=== PATIENT | female | born 1950 | race Caucasian/White ===

== ENCOUNTER 2016-07-29 07:22 | Day surgery (SDC) | payer MEDICARE, OTHER ==
[~2016-07-29 07:22] MED LIST: Midazolam 1 MG/ML 2 ML SDV ONE; Propofol 200 MG/20 ML SDV ONE; fentaNYL 100 MCG/2 ML SDV ONE
[2016-07-29] MEDS ORDERED: Sodium Chloride 0.9% 1,000 ML IV SCH (07:45)
[2016-07-29] MEDS ORDERED: Propofol 200 MG/20 ML SDV ONE (09:10)
[2016-07-29 10:45] VITALS: BP 123/65
--- NOTE | 2016-07-29 10:46 | OR ---
CORRECTED COPY FINDINGS: 1. Cecal polyp, 5 mm, completely removed using cold biopsy forceps. 2. Ascending colon polyp, approximately 5 mm, completely removed using cold biopsy forceps. 3. Transverse colon polyp, approximately 5 mm, completely removed using cold biopsy forceps. 4. Transverse colon polyp, #2, approximately 5 mm, completely removed using cold biopsy forceps. DATE OF PROCEDURE: 07/29/2016 PROCEDURE PERFORMED: Colonoscopy. FINDINGS: 1. Cecal polyp, approximately 5 mm, completely removed using cold biopsy forceps. 2. Transverse colon polyps;. a. #1, approximately 5 mm, completely removed using cold biopsy forceps. b. #2, 5 mm, completely removed using cold biopsy forceps. COMPLICATIONS: None. NEUROSURGERY RESEARCH DIRECTOR: None. PREOPERATIVE DIAGNOSIS: Family history of colorectal cancer. POSTOPERATIVE DIAGNOSIS: Family history of colorectal cancer. RISKS: Risks, benefits, alternatives, and limitations including infection, bleeding, and perforation were explained to the patient , and they wished to proceed. PROCEDURE IN DETAIL: The patient was placed in left lateral decubitus position. Digital rectal exam was performed without abnormality. The scope was introduced and advanced atraumatically to the ileocecal valve. The scope was brought back to the ascending, transverse, descending colon, and retroflexed. No diverticulosis. No masses. The aforementioned polyps were all identified and completely removed without abnormality. The patient tolerated the procedure well. Patrick Lisa MD /[id number]
== END 2016-07-29 10:55 | disposition home or self-care (01) ==
LOC: JP.SDS 07:22
PROVIDERS: ATTEND Surgery
DX: Z12.11 Encounter for screening for malignant neoplasm of colon (principal); D12.0 Benign neoplasm of cecum; D12.2 Benign neoplasm of ascending colon; D12.3 Benign neoplasm of transverse colon; I12.9 Hypertensive chronic kidney disease with stage 1 through stage 4 chronic kidney disease, or unspecified chronic kidney disease; E11.22 Type 2 diabetes mellitus with diabetic chronic kidney disease; N18.9 Chronic kidney disease, unspecified; Z80.0 Family history of malignant neoplasm of digestive organs
CPT/HCPCS: 45380; 82962; J2250; J2704; J3010; J7040; 88305

== ENCOUNTER 2016-09-22 19:56 | Emergency (ER) | payer MEDICARE, OTHER ==
[2016-09-22 20:24] VITALS: BP 176/83
[2016-09-22] MEDS ORDERED: Bacitracin Oint 1 GM U/D Packet TOP ONE (20:25)
--- NOTE | 2016-09-22 20:30 | EDM.PDOC ---
ED HPI GENERAL MEDICAL PROBLEM - General Chief Complaint: Laceration Stated Complaint: CUT THUMB Time Seen by Provider: 09/22/16 20:29 Source of Information: Reports: Patient History Limitations: Reports: No Limitations - History of Present Illness INITIAL COMMENTS - FREE TEXT/NARRATIVE: 65-year-old female cut her left hand with a knife while trying to cut a steak. She has a curved flap laceration on the outside of the base of the thumb. No distal paresthesias, weakness or limited range of motion. Onset: Today Duration: Hour(s): (Within the last hour) Location: Reports: Upper Extremity, Left Associated Symptoms: Reports: No Other Symptoms - Related Data Allergies Allergy/AdvReac Type Severity Reaction Status Date / Time cefprozil Allergy Hives Verified 09/22/16 20:22 cefuroxime [From Ceftin] Allergy Hives Verified 09/22/16 20:22 celecoxib Allergy Hives Verified 09/22/16 20:22 cephalexin Allergy Hives Verified 09/22/16 20:22 ciprofloxacin Allergy Swelling Verified 09/22/16 20:22 clindamycin Allergy Hives Verified 09/22/16 20:22 erythromycin base Allergy Hives Verified 09/22/16 20:22 etanercept [From Enbrel] Allergy Hives Verified 09/22/16 20:22 Iodinated Contrast- Oral and Allergy Hives Verified 09/22/16 20:22 IV Dye [Iodinated Contrast Media - Oral and] metformin Allergy Hives Verified 09/22/16 20:22 naproxen Allergy Hives Verified 09/22/16 20:22 Penicillins Allergy Hives Verified 09/22/16 20:22 pineapple Allergy Other Verified 09/22/16 20:22 propoxyphene Allergy Hives Verified 09/22/16 20:22 rofecoxib [From Vioxx] Allergy Hives Verified 09/22/16 20:22 Sulfa (Sulfonamide Allergy Hives Verified 09/22/16 20:22 Antibiotics) Home Meds: Home Meds Acetaminophen [Tylenol Extra Strength] 1,000 mg PO Q6H PRN 07/14/16 [History] Acyclovir 400 mg PO TID 07/14/16 [History] Aspirin 325 mg PO DAILY 07/14/16 [History] Atenolol [Tenormin] 25 mg PO BEDTIME 07/14/16 [History] Atenolol [Tenormin] 50 mg PO QAM 07/14/16 [History] Cholecalciferol (Vitamin D3) [Vitamin D3] 3,000 units PO DAILY 07/14/16 [History ] Folic Acid 1 mg PO DAILY 07/14/16 [History] Furosemide [Lasix] 40 mg PO 1400 07/14/16 [History] Furosemide [Lasix] 80 mg PO QAM 07/14/16 [History] Hydrocodone/Acetaminophen [Hydrocodon-Acetaminophen 5-325] 1 - 2 tab PO Q6H PRN 07/14/16 [History] Insulin Glarg,Human.Rec.Analog [LantUS Solostar] 20 unit SQ QAM 07/14/16 [ History] Insulin Glarg,Human.Rec.Analog [LantUS Solostar] 20 unit SUBCUT QPM 07/14/16 [ History] Nitroglycerin [Nitrostat] 0.4 mg SL ASDIRECTED PRN 07/14/16 [History] Omeprazole 20 mg PO BEDTIME 07/14/16 [History] Primidone 100 mg PO BEDTIME 07/14/16 [History] Simvastatin [Zocor] 40 mg PO BEDTIME 07/14/16 [History] Spironolactone [Aldactone] 100 mg PO DAILY 07/14/16 [History] azaTHIOprine [Imuran] 50 mg PO TID 07/14/16 [History] diphenhydrAMINE [Benadryl] 25 mg PO BEDTIME PRN 07/14/16 [History] predniSONE [Prednisone] 5 mg PO DAILY 07/14/16 [History] Past Medical History HEENT History: Reports: Cataract, Retinal Detachment, Other (See Below) Other HEENT History: 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 Cardiovascular History: Reports: Afib, Angina, Heart Murmur, High Cholesterol, Hypertension, Other (See Below) Other Cardiovascular History: small vessel vasculitis Respiratory History: Reports: Bronchitis, Recurrent, Pneumonia, Recurrent, Other (See Below) Other Respiratory History: questionable PE in past, right lung histoplasmosis Gastrointestinal History: Reports: Hemorrhoids Genitourinary History: Reports: Other (See Below) Other Genitourinary History: Stage III renal failure BOXING INSTRUCTOR History: Reports: , Other (See Below) Other OB/BYN History: ovarian cyst Musculoskeletal History: Reports: RA, Other (See Below) Other Musculoskeletal History: osteopenia. bilateral knee pain Endocrine/Metabolic History: Reports: Diabetes, Type II, Multinodular Thyroid Hematologic History: Reports: Anemia Immunologic History: Reports: Other (See Below) Other Immunologic History: Lupus Dermatologic History: Reports: Other (See Below) Other Dermatologic History: leg phlebitis, cellulitis - Past Surgical History HEENT Surgical History: Reports: Cataract Surgery, Detached Retina GI Surgical History: Reports: Colonoscopy Female Surgical History: Reports: Breast Biopsy, Hysterectomy, Salpingo- Oophorectomy, Tubal Ligation Neurological Surgical History: Reports: Spinal Fusion, Other (See Below) Other Neurological Surgeries/Procedures: L5-S1 fusion Musculoskeletal Surgical History: Reports: Arthroscopic Procedure, Other (See Below) Other Musculoskeletal Surgeries/Procedures:: "Hometown" feet - reconstruction of bilat feet Social & Family History - Tobacco Use Smoking Status *Q: Never Smoker Second Hand Smoke Exposure: Yes - Caffeine Use Caffeine Use: Reports: Soda - Recreational Drug Use Recreational Drug Use: No ED ROS GENERAL - Review of Systems Review Of Systems: See Below Constitutional: Denies: Fever Respiratory: Denies: Shortness of Breath GI/Abdominal: Denies: Nausea, Vomiting Skin: Reports: Other (Patient does have lupus, "weak skin".) ED EXAM, SKIN/RASH Exam: See Below Exam Limited By: No Limitations General Appearance: Alert, No Apparent Distress Respiratory/Chest: No Respiratory Distress Extremities: Other (Exam is otherwise limited to the left hand. The patient is a 2.5 cm curved flap laceration on the back of the left thumb over the metacarpal area. Distal CMS is normal.) Course - Vital Signs Last Recorded V/S: Last Vital Signs Temp 98.0 F 09/22/16 20:28 Pulse 66 09/22/16 20:28 Resp 16 09/22/16 20:28 BP 176/83 H 09/22/16 20:28 Pulse Ox 97 09/22/16 20:28 - Orders/Labs/Meds Meds: Medications Discontinued Medications Generic Name Dose Route Start Last Admin Trade Name Freq PRN Reason Stop Dose Admin Bacitracin 1 dose 09/22/16 20:25 09/22/16 21:06 Bacitracin Oint 1 Gm TOP 09/22/16 20:26 1 dose ONETIME ONE Administration Lidocaine HCl 5 ml 09/22/16 20:25 09/22/16 21:06 Xylocaine-Mpf 1% INJECT 09/22/16 20:26 5 ml ONETIME ONE Administration - Re-Assessments/Exams Free Text/Narrative Re-Assessment/Exam: 09/22/16 21:03 The wound was anesthetized with 1% lidocaine, cleansed thoroughly with saline and Hibiclens and 5 5-0 Ethilon sutures were used to close the wound. Topical bacitracin was applied and the sutures can be removed in 8 days. Departure - Departure Time of Disposition: 21:35 Disposition: Home, Self-Care 01 Condition: Good Clinical Impression: Laceration of hand Qualifiers: Encounter type: initial encounter Foreign body presence: without foreign body Laterality: left Qualified Code(s): S61.412A - Laceration without foreign body of left hand, initial encounter - Discharge Information Instructions: Laceration Care, Adult, [id number] Referrals: Mata Escobar MD [Primary Care Provider] - Forms: ED Department Discharge Care Plan Goals: Keep wound covered and clean while healing. Sutures can be removed in 8 days, recheck sooner if concerns of infection or not healing satisfactorily.
== END 2016-09-22 21:33 | disposition home or self-care (01) ==
LOC: JP.ED 19:56
DX: S61.412A Laceration without foreign body of left hand, initial encounter (principal); I48.91 Unspecified atrial fibrillation; E78.00 Pure hypercholesterolemia, unspecified; M06.9 Rheumatoid arthritis, unspecified; I12.9 Hypertensive chronic kidney disease with stage 1 through stage 4 chronic kidney disease, or unspecified chronic kidney disease; N18.3 Chronic kidney disease, stage 3 (moderate); E11.22 Type 2 diabetes mellitus with diabetic chronic kidney disease; Z86.2 Personal history of diseases of the blood and blood-forming organs and certain disorders involving the immune mechanism; Z88.8 Allergy status to other drugs, medicaments and biological substances; Z88.1 Allergy status to other antibiotic agents; Z91.041 Radiographic dye allergy status; Z88.0 Allergy status to penicillin; Z87.01 Personal history of pneumonia (recurrent); Z91.018 Allergy to other foods; Z88.2 Allergy status to sulfonamides; Z79.4 Long term (current) use of insulin; Z79.899 Other long term (current) drug therapy; Z98.49 Cataract extraction status, unspecified eye; W26.0XXA Contact with knife, initial encounter; M25.561 Pain in right knee; M25.562 Pain in left knee; M17.0 Bilateral primary osteoarthritis of knee
CPT/HCPCS: 12001; 735642650; 73564-26-LT; 73564-26-RT; 73564-50; 73564-LT; 73564-RT; 87070; 99213; 99282-25; 99283-25

== ENCOUNTER 2017-09-15 06:18 | Day surgery (SDC) | payer MEDICARE, OTHER ==
[2017-09-15] MEDS ORDERED: Sodium Chloride 0.9% 1,000 ML IV SCH (07:00)
[2017-09-15] MEDS ORDERED: fentaNYL 100 MCG/2 ML SDV ONE (07:06)
[2017-09-15] MEDS ORDERED: Propofol 200 MG/20 ML SDV ONE (07:06)
[2017-09-15] MEDS ORDERED: Midazolam 1 MG/ML 2 ML SDV ONE (07:06)
--- NOTE | 2017-09-15 09:16 | OR ---
DATE OF PROCEDURE: 09/15/2017 PROCEDURE: Colonoscopy. FINDINGS: Descending colon polyp, approximately 5 mm, completely removed using cold biopsy forceps. COMPLICATIONS: None. LABOR DELIVERY RN: None. ANESTHETIC: MAC. PREOPERATIVE DIAGNOSIS: History of colon polyps/family history of colorectal cancer. POSTOPERATIVE DIAGNOSIS: History of colon polyps/family history of colorectal cancer. RISKS: Risks, benefits, alternatives, and limitations including, but not limited to infection, bleeding, and perforation were explained to the patient, who wished to proceed. PROCEDURE DETAILS: The patient was placed in left lateral decubitus position. Digital rectal exam was performed, which showed mild external hemorrhoids. The scope was introduced and advanced atraumatically to the cecum. A photo was taken of this. The scope was brought back to the remaining colon. The aforementioned polyp was identified and completely removed. No other abnormalities. No old or new blood. The patient tolerated the procedure well. No diverticulosis or other polyps. Patrick Lisa MD /[id number]
[2017-09-15 09:38] VITALS: BP 142/66
== END 2017-09-15 09:30 | disposition home or self-care (01) ==
LOC: JP.SDS 06:18
PROVIDERS: ATTEND Surgery
DX: Z12.11 Encounter for screening for malignant neoplasm of colon (principal); D12.4 Benign neoplasm of descending colon; K64.4 Residual hemorrhoidal skin tags; I12.9 Hypertensive chronic kidney disease with stage 1 through stage 4 chronic kidney disease, or unspecified chronic kidney disease; E11.22 Type 2 diabetes mellitus with diabetic chronic kidney disease; N18.9 Chronic kidney disease, unspecified; Z86.010 Personal history of colon polyps; Z80.0 Family history of malignant neoplasm of digestive organs
CPT/HCPCS: 45380; J2250; J2704; J3010; J7030; 88305

== ENCOUNTER 2020-07-19 18:03 | Emergency (ER) | payer MEDICARE, OTHER ==
--- NOTE | 2020-07-19 19:10 | EDM.PDOC ---
ED HPI GENERAL MEDICAL PROBLEM - General Chief Complaint: General Stated Complaint: BRUISING ON RT SIDE AFTER PROCEDURE Time Seen by Provider: 07/19/20 18:42 Source of Information: Reports: Patient History Limitations: Reports: No Limitations - History of Present Illness INITIAL COMMENTS - FREE TEXT/NARRATIVE: Marcy is a 69-year-old female presenting to the ED for evaluation of a large hematoma in her right forearm, arm, and extending into the axilla and right chest/breast area. The patient underwent a cardiac angiogram at [facility] days ago where they did a left radial artery approach. They had to downsize the size of the catheter because of vasospasm resulting in a large extravasation of blood around the artery extending up the arm. She had a significant drop in her hemoglobin from 11.3-9.0 resulting in them keeping her overnight for observation. She states that they gave her some type of sedative for the angiogram and when she woke up her throat felt quite scratchy like she had been intubated. Since then she has been having difficulty with concentration and feels ill. No recollection of the angiogram due to the sedation. She is worried because the arm and right breast are becoming quite tender and painful. She reports that during her stay in the hospital they were having difficulty keeping her sugars under control because they were underdosing her with insulin resulting in her leukosis levels being over 200. At one point they were over 350 and the only gave her 5 units of regular insulin for this. He also has a history of stage III kidney failure and was supposed to have a creatinine drawn in the clinic today but did not make it because she was not feeling well. She also reports that she was hypokalemic at the time of dischar ge with a potassium of 3.2 and they gave her a couple tablets of K-Kelsey but did not check her again after that. She is on Plavix following the angioplasty. She has history significant for a loud systolic ejection murmur heard in the left upper sternal border, bilateral carotid stenosis with the right carotid being 100% occluded and left carotid being 69% occluded. She denies any new numbness, weakness, or incoordination. Right Arm Pain Score (Numeric/FACES): 6 - Related Data Allergies Allergy/AdvReac Type Severity Reaction Status Date / Time cefprozil Allergy Hives Verified 07/19/20 18:44 cefuroxime [From Ceftin] Allergy Hives Verified 07/19/20 18:44 celecoxib Allergy Hives Verified 07/19/20 18:44 cephalexin Allergy Hives Verified 07/19/20 18:44 ciprofloxacin Allergy Swelling Verified 07/19/20 18:44 clindamycin Allergy Hives Verified 07/19/20 18:44 erythromycin base Allergy Hives Verified 07/19/20 18:44 etanercept [From Enbrel] Allergy Hives Verified 07/19/20 18:44 Iodinated Contrast Media Allergy Hives Verified 07/19/20 18:44 [Iodinated Contrast Media - Oral and] metformin Allergy Hives Verified 07/19/20 18:44 naproxen Allergy Hives Verified 07/19/20 18:44 Penicillins Allergy Hives Verified 07/19/20 18:44 pineapple Allergy Other Verified 07/19/20 18:44 propoxyphene Allergy Hives Verified 07/19/20 18:44 rofecoxib [From Vioxx] Allergy Hives Verified 07/19/20 18:44 Sulfa (Sulfonamide Allergy Hives Verified 07/19/20 18:44 Antibiotics) Home Meds: Home Meds Acetaminophen [Tylenol Extra Strength] 1,000 mg PO Q6H PRN 07/14/16 [History] Aspirin 81 mg PO DAILY 07/14/16 [History] Cholecalciferol (Vitamin D3) [Vitamin D3] 1,000 units PO DAILY 07/14/16 [History] Folic Acid 1 mg PO DAILY 07/14/16 [History] Furosemide [Lasix] 80 mg PO DAILY 07/14/16 [History] Hydrocodone/Acetaminophen [Hydrocodon-Acetaminophen 5-325] 1 - 2 tab PO Q6H PRN 07/14/16 [History] Insulin Glarg,Human.Rec.Analog [LantUS Solostar] 25 unit SQ QAM 07/14/16 [History] Omeprazole 20 mg PO BEDTIME 07/14/16 [History] Primidone 100 mg PO BEDTIME 07/14/16 [History] Spironolactone [Aldactone] 100 mg PO DAILY 07/14/16 [History] azaTHIOprine [Imuran] 50 mg PO DAILY 07/14/16 [History] predniSONE [Prednisone] 5 mg PO DAILY 07/14/16 [History] Propranolol [Inderal] 20 mg PO BID 09/14/17 [History] Acyclovir [Zovirax] 200 mg PO TID 05/10/19 [History] Doxycycline [Vibramycin] 1 cap PO BID 05/10/19 [History] Ibandronate [Boniva] 1 tab PO ASDIRECTED 05/10/19 [History] Insulin Aspart [NovoLOG] 0 units SQ ASDIRECTED 05/10/19 [History] Clopidogrel [Plavix] 75 mg PO DAILY 07/19/20 [History] Furosemide 40 mg PO BEDTIME 07/19/20 [History] Rosuvastatin [Crestor] 40 mg PO BEDTIME 07/19/20 [History] amLODIPine [Norvasc] 2.5 mg PO DAILY 07/19/20 [History] Past Medical History HEENT History: Reports: Cataract, Retinal Detachment, Other (See Below) Other HEENT History: 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 angiogram with stent may and june 2020. 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 bilateral knee pain Neurological History: Reports: None Endocrine/Metabolic History: Reports: Diabetes, Type II, Multinodular Thyroid Hematologic History: Reports: Anemia, Blood Transfusion(s) Immunologic History: Reports: Other (See Below) Other Immunologic History: Lupus Dermatologic History: Reports: Other (See Below) Other Dermatologic History: leg phlebitis, cellulitis - Infectious Disease History Infectious Disease History: Reports: Chicken Pox, Measles, Pertussis (Whooping Cough), Rheumatic Fever, Scarlet Fever, Shingles - Past Surgical History HEENT Surgical History: Reports: Cataract Surgery, Detached Retina Cardiovascular Surgical History: Reports: Coronary Artery Stent GI Surgical History: Reports: Colonoscopy, EGD Female Surgical History: Reports: Breast Biopsy, Hysterectomy, Salpingo- Oophorectomy, Tubal Ligation Endocrine Surgical History: Reports: Thyroid Biopsy Neurological Surgical History: Reports: Spinal Fusion, Other (See Below) Other Neurological Surgeries/Procedures: L5-S1 fusion Musculoskeletal Surgical History: Reports: Arthroscopic Procedure, Other (See Below) Other Musculoskeletal Surgeries/Procedures:: Scharco" feet - reconstruction of bilat feet Social & Family History - Tobacco Use Tobacco Use Status *Q: Never Tobacco User - Caffeine Use Caffeine Use: Reports: None - Recreational Drug Use Recreational Drug Use: No ED ROS GENERAL - Review of Systems Review Of Systems: See Below Constitutional: Reports: No Symptoms HEENT: Reports: Throat Pain (Patient states this feels like they had intubated her with her throat feeling scratchy) Respiratory: Reports: No Symptoms Cardiovascular: Reports: No Symptoms Endocrine: Reports: No Symptoms GI/Abdominal: Reports: No Symptoms : Reports: No Symptoms Musculoskeletal: Reports: Arm Pain (Right arm pain secondary to hematoma formation in the right forearm, arm, axilla, and chest wall) Skin: Reports: Bruising (Extensive bruising through the right forearm, arm, and axilla) Neurological: Reports: Other (Patient is complaining of feeling "foggy" since undergoing her procedure) Psychiatric: Reports: No Symptoms Hematologic/Lymphatic: Reports: No Symptoms Immunologic: Reports: No Symptoms ED EXAM, GENERAL - Physical Exam Exam: See Below Exam Limited By: No Limitations General Appearance: Alert, No Apparent Distress, Anxious Eye Exam: Bilateral Eye: EOMI, PERRL Throat/Mouth: Normal Inspection Head: Atraumatic, Normocephalic Neck: Normal Inspection, Supple, Carotid Bruit (Left-sided) Respiratory/Chest: No Respiratory Distress, Lungs Clear, Normal Breath Sounds Cardiovascular: Normal Peripheral Pulses, Regular Rate, Rhythm, No Edema, No JVD, Systolic Murmur (Grade 4/6 systolic ejection murmur heard in the left upper sternal region.) Peripheral Pulses: 2+: Radial (L), Radial (R), Posterior Tibial (L), Posterior Tibial (R) GI/Abdominal: Normal Bowel Sounds, Soft, Non-Tender Back Exam: Normal Inspection Extremities: Normal Range of Motion, No Pedal Edema, Normal Capillary Refill, Other (Very large hematoma extending up to the right dorsal forearm and arm into the axilla and lateral chest wall the area is very tender to palpation.) Neurological: Alert, Oriented, Normal Cognition, No Motor/Sensory Deficits Psychiatric: Normal Affect Skin Exam: Warm, Dry, Ecchymosis (Large area of ecchymosis tracking down the dorsal forearm, arm, into the axilla and chest wall), Increased Warmth (Following the path of the ecchymosis) Lymphatic: No Adenopathy Course - Vital Signs Last Recorded V/S: Last Vital Signs Temp 36.4 C 07/19/20 18:43 Pulse 72 07/19/20 20:56 Resp 16 07/19/20 18:43 BP 127/63 07/19/20 20:56 Pulse Ox 99 07/19/20 20:56 - Orders/Labs/Meds Labs: Laboratory Tests 07/19/20 07/19/20 07/19/20 Range/Units 19:10 19:10 19:10 WBC 7.8 (4.5-11.0) K/uL RBC 2.95 L (3.30-5.50) M/uL Hgb 9.4 L D (12.0-15.0) g/dL Hct 29.3 L (36.0-48.0) % MCV 99 H (80-98) fL MCH 32 H (27-31) pg MCHC 32 (32-36) % Plt Count 198 (150-400) K/uL Neut % (Auto) 70.0 H (36-66) % Lymph % (Auto) 19.1 L (24-44) % [place] % (Auto) 9.4 H (2-6) % Eos % (Auto) 1.4 L (2-4) % Baso % (Auto) 0.1 (0-1) % PT 10.4 (9.5-12.0) sec INR 0.95 (0.80-1.20) APTT 21.3 L (27.0-36.0) sec Sodium 140 (140-148) mmol/L Potassium 3.9 (3.6-5.2) mmol/L Chloride 97 L (100-108) mmol/L Carbon Dioxide 33 H (21-32) mmol/L Anion Gap 13.9 (5.0-14.0) mmol/L BUN 30 H (7-18) mg/dL Creatinine 1.4 H (0.6-1.0) mg/dL Est Cr Clr Drug Dosing 39.33 mL/min Estimated GFR (MDRD) 38 L (>60) Glucose 136 H (74-106) mg/dL Calcium 9.1 (8.5-10.1) mg/dL Total Bilirubin 0.4 (0.2-1.0) mg/dL AST 19 (15-37) U/L ALT 23 (12-78) U/L Alkaline Phosphatase 74 (46-116) U/L Total Protein 6.8 (6.4-8.2) g/dL Albumin 3.7 (3.4-5.0) g/dL Globulin 3.1 (2.3-3.5) g/dL Albumin/Globulin Ratio 1.2 (1.2-2.2) Urine Color (YELLOW) Urine Appearance (CLEAR) Urine pH (5.0-8.0) Ur Specific [place] (1.008-1.030) Urine Protein (NEGATIVE) mg/dL Urine Glucose (UA) (NEGATIVE) mg/dL Urine Ketones (NEGATIVE) mg/dL Urine Occult Blood (NEGATIVE) Urine Nitrite (NEGATIVE) Urine Bilirubin (NEGATIVE) Urine Urobilinogen (0.2-1.0) EU/dL Ur Leukocyte Esterase (NEGATIVE) Urine RBC (0-5) Urine WBC (0-5) Ur Epithelial Cells Amorphous Sediment Urine Bacteria Urine Mucus 07/19/20 Range/Units 19:46 WBC (4.5-11.0) K/uL RBC (3.30-5.50) M/uL Hgb (12.0-15.0) g/dL Hct (36.0-48.0) % MCV (80-98) fL MCH (27-31) pg MCHC (32-36) % Plt Count (150-400) K/uL Neut % (Auto) (36-66) % Lymph % (Auto) (24-44) % [place] % (Auto) (2-6) % Eos % (Auto) (2-4) % Baso % (Auto) (0-1) % PT (9.5-12.0) sec INR (0.80-1.20) APTT (27.0-36.0) sec Sodium (140-148) mmol/L Potassium (3.6-5.2) mmol/L Chloride (100-108) mmol/L Carbon Dioxide (21-32) mmol/L Anion Gap (5.0-14.0) mmol/L BUN (7-18) mg/dL Creatinine (0.6-1.0) mg/dL Est Cr Clr Drug Dosing mL/min Estimated GFR (MDRD) (>60) Glucose (74-106) mg/dL Calcium (8.5-10.1) mg/dL Total Bilirubin (0.2-1.0) mg/dL AST (15-37) U/L ALT (12-78) U/L Alkaline Phosphatase (46-116) U/L Total Protein (6.4-8.2) g/dL Albumin (3.4-5.0) g/dL Globulin (2.3-3.5) g/dL Albumin/Globulin Ratio (1.2-2.2) Urine Color Yellow (YELLOW) Urine Appearance Clear (CLEAR) Urine pH 7.0 (5.0-8.0) Ur Specific [place] 1.015 (1.008-1.030) Urine Protein 30 H (NEGATIVE) mg/dL Urine Glucose (UA) Negative (NEGATIVE) mg/dL Urine Ketones Negative (NEGATIVE) mg/dL Urine Occult Blood Trace-intact H (NEGATIVE) Urine Nitrite Negative (NEGATIVE) Urine Bilirubin Negative (NEGATIVE) Urine Urobilinogen 1.0 (0.2-1.0) EU/dL Ur Leukocyte Esterase Trace H (NEGATIVE) Urine RBC 0-5 (0-5) Urine WBC 5-10 H (0-5) Ur Epithelial Cells Few Amorphous Sediment Not seen Urine Bacteria Moderate Urine Mucus Few - Re-Assessments/Exams Free Text/Narrative Re-Assessment/Exam: 07/19/20 21:38 I reviewed the patient's labs showing her hemoglobin is at 9.4 which is consistent with where it was when she was discharged from the hospital following the angiogram. Her kidney function is doing well with a creatinine of 1.4. Her GFR is calculated at 45 which puts her at a chronic kidney disease stage IIIa. Her potassium is normal at 3.9. At this time, the brain fog is likely due to recovering from her hypnotic that was used during her sedation for her angiogram. This may take up to a week to clear. I encouraged her to continue to push fluids to help flush the kidneys from the contrast use during the angiogram and angioplasty. At this time she is stable and suitable for discharge home in satisfactory condition. She may continue to take Tylenol for pain control and I encouraged her to use heating pads or heating blanket on the area of the hematoma to help with absorption. All questions were answered prior to discharge and indications return to the ED were discussed. Departure - Departure Time of Disposition: 21:35 Disposition: Home, Self-Care 01 Clinical Impression: Brain fog Postoperative hematoma involving circulatory system Qualifiers: Procedure type: cardiac catheterization Qualified Code(s): I97.630 - Postprocedural hematoma of a circulatory system organ or structure following a cardiac catheterization Chronic renal failure, stage 3 (moderate) Qualifiers: Chronic kidney disease stage 3 subtype: stage 3a (GFR 45-59) Qualified Code(s): N18.31 - Chronic kidney disease, stage 3a - Discharge Information Instructions: Chronic Kidney Disease, Adult, [id number] Referrals: Mata Escobar MD [Primary Care Provider] - Forms: ED Department Discharge Care Plan Goals: The hematoma in your forearm, arm, and chest wall are likely stable at this point. Will take several weeks for this to reabsorb. You may use heating pad or hot packs to the area to help reduce pain and swelling. Please take Tylenol also for the pain. You will want to avoid ibuprofen as you are already on P lavix. Continue to push fluids to prevent dehydration and keep the kidneys functioning properly after the contrast from the angiogram. Sepsis Event Note (ED) - Evaluation Sepsis Screening Result: No Definite Risk - Focused Exam Vital Signs: Vital Signs Temp Pulse Resp BP Pulse Ox 07/19/20 20:56 72 127/63 99 07/19/20 18:43 36.4 C 81 16 147/64 H 97 07/19/20 18:20 36.4 C 81 16 147/64 H 97 - Problem List & Annotations (1) Brain fog SNOMED Code(s): 585951509 Code(s): F48.8 - OTHER SPECIFIED NONPSYCHOTIC MENTAL DISORDERS Status: Acute Priority: Medium Current Visit: Yes (2) Chronic renal failure, stage 3 (moderate) SNOMED Code(s): 77567131, 915932977 Code(s): N18.30 - CHRONIC KIDNEY DISEASE, STAGE 3 UNSPECIFIED Status: Chronic Priority: Medium Current Visit: Yes Qualifiers: Chronic kidney disease stage 3 subtype: stage 3a (GFR 45-59) Qualified Code(s): N18.31 - Chronic kidney disease, stage 3a (3) Postoperative hematoma involving circulatory system SNOMED Code(s): 881314527, 094621502 Code(s): OEH2732 - Status: Acute Priority: High Current Visit: Yes Qualifiers: Procedure type: cardiac catheterization Qualified Code(s): I97.630 - Postprocedural hematoma of a circulatory system organ or structure following a cardiac catheterization - Problem List Review Problem List Initiated/Reviewed/Updated: Yes
[2020-07-19 21:38] VITALS: BP 146/68; PULSE 73
== END 2020-07-19 21:58 | disposition home or self-care (01) ==
LOC: JP.ED 18:03
DX: I97.630 Postprocedural hematoma of a circulatory system organ or structure following a cardiac catheterization (principal); E78.00 Pure hypercholesterolemia, unspecified; I48.91 Unspecified atrial fibrillation; E11.9 Type 2 diabetes mellitus without complications; I12.9 Hypertensive chronic kidney disease with stage 1 through stage 4 chronic kidney disease, or unspecified chronic kidney disease; E11.22 Type 2 diabetes mellitus with diabetic chronic kidney disease; N18.31 Chronic kidney disease, stage 3a; Z79.899 Other long term (current) drug therapy; G98.8 Other disorders of nervous system
CPT/HCPCS: 36415; 80053; 81001; 85025; 85610; 85730; 99283

== ENCOUNTER 2020-12-24 12:06 | Emergency (ER) | payer MEDICARE, OTHER ==
[2020-12-24 12:29] VITALS: BP 159/56; PULSE 70
--- NOTE | 2020-12-24 12:39 | EDM.PDOC ---
ED HPI GENERAL MEDICAL PROBLEM - General Chief Complaint: Chest Pain Stated Complaint: BURNING IN CHEST Time Seen by Provider: 12/24/20 12:35 Source of Information: Reports: Patient History Limitations: Reports: No Limitations - History of Present Illness INITIAL COMMENTS - FREE TEXT/NARRATIVE: 70-year-old female who has known coronary artery disease, had stents placed earlier this year and went in for a routine post evaluation at the clinic for cardiology follow-up and informed the provider that she was having recurring burning in her chest. It sounds like it was fairly stable initially but she starting to have symptoms at rest. An EKG apparently was done at the clinic which showed some changes that were stable from previous EKGs. The patient says she occasionally takes nitroglycerin but it gives her headache so she typically just rests until the pressure or burning goes away. I got a call from a clinic nurse that said she was coming over to be evaluated for "unstable angina". I did not get a call from the provider. She has no nausea or vomiting. The symptoms have been ongoing for several weeks but seem to be worsening. Onset: Gradual Duration: Week(s): (Several weeks) Location: Reports: Chest (Chest burning) Associated Symptoms: Reports: No Other Symptoms Chest Pain Score (Numeric/FACES): 4 - Related Data Allergies Allergy/AdvReac Type Severity Reaction Status Date / Time cefprozil Allergy Hives Verified 12/24/20 12:50 cefuroxime [From Ceftin] Allergy Hives Verified 12/24/20 12:50 celecoxib Allergy Hives Verified 12/24/20 12:50 cephalexin Allergy Hives Verified 12/24/20 12:50 ciprofloxacin Allergy Swelling Verified 12/24/20 12:50 clindamycin Allergy Hives Verified 12/24/20 12:50 erythromycin base Allergy Hives Verified 12/24/20 12:50 etanercept [From Enbrel] Allergy Hives Verified 12/24/20 12:50 Iodinated Contrast Media Allergy Hives Verified 12/24/20 12:50 [Iodinated Contrast Media - Oral and] metformin Allergy Hives Verified 12/24/20 12:50 naproxen Allergy Hives Verified 12/24/20 12:50 Penicillins Allergy Hives Verified 12/24/20 12:50 pineapple Allergy Other Verified 12/24/20 12:50 propoxyphene Allergy Hives Verified 12/24/20 12:50 rofecoxib [From Vioxx] Allergy Hives Verified 12/24/20 12:50 Sulfa (Sulfonamide Allergy Hives Verified 12/24/20 12:50 Antibiotics) Home Meds: Home Meds Acetaminophen [Tylenol Extra Strength] 1,000 mg PO Q6H PRN 07/14/16 [History] Aspirin 81 mg PO DAILY 07/14/16 [History] Cholecalciferol (Vitamin D3) [Vitamin D3] 1,000 units PO DAILY 07/14/16 [History] Folic Acid 1 mg PO DAILY 07/14/16 [History] Furosemide [Lasix] 80 mg PO DAILY 07/14/16 [History] Hydrocodone/Acetaminophen [Hydrocodon-Acetaminophen 5-325] 1 - 2 tab PO Q6H PRN 07/14/16 [History] Insulin Glarg,Human.Rec.Analog [LantUS Solostar] 25 unit SQ QAM 07/14/16 [History] Omeprazole 20 mg PO BEDTIME 07/14/16 [History] Primidone 100 mg PO BEDTIME 07/14/16 [History] Spironolactone [Aldactone] 100 mg PO DAILY 07/14/16 [History] azaTHIOprine [Imuran] 50 mg PO DAILY 07/14/16 [History] predniSONE [Prednisone] 5 mg PO DAILY 07/14/16 [History] Propranolol [Inderal] 20 mg PO BID 09/14/17 [History] Acyclovir [Zovirax] 200 mg PO TID 05/10/19 [History] Doxycycline [Vibramycin] 1 cap PO BID 05/10/19 [History] Ibandronate [Boniva] 1 tab PO ASDIRECTED 05/10/19 [History] Insulin Aspart [NovoLOG] 0 units SQ ASDIRECTED 05/10/19 [History] Clopidogrel [Plavix] 75 mg PO DAILY 07/19/20 [History] Furosemide 40 mg PO BEDTIME 07/19/20 [History] Rosuvastatin [Crestor] 40 mg PO BEDTIME 07/19/20 [History] amLODIPine [Norvasc] 2.5 mg PO DAILY 07/19/20 [History] Past Medical History HEENT History: Reports: Cataract, Retinal Detachment, Other (See Below) Other HEENT History: 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 angiogram with stent may and june 2020. 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 bilateral knee pain Neurological History: Reports: None Endocrine/Metabolic History: Reports: Diabetes, Type II, Multinodular Thyroid Hematologic History: Reports: Anemia, Blood Transfusion(s) Immunologic History: Reports: Other (See Below) Other Immunologic History: Lupus Dermatologic History: Reports: Other (See Below) Other Dermatologic History: leg phlebitis, cellulitis - Infectious Disease History Infectious Disease History: Reports: Chicken Pox, Measles, Pertussis (Whooping Cough), Rheumatic Fever, Scarlet Fever, Shingles - Past Surgical History HEENT Surgical History: Reports: Cataract Surgery, Detached Retina Cardiovascular Surgical History: Reports: Coronary Artery Stent GI Surgical History: Reports: Colonoscopy, EGD Female Surgical History: Reports: Breast Biopsy, Hysterectomy, Salpingo- Oophorectomy, Tubal Ligation Endocrine Surgical History: Reports: Thyroid Biopsy Neurological Surgical History: Reports: Spinal Fusion, Other (See Below) Other Neurological Surgeries/Procedures: L5-S1 fusion Musculoskeletal Surgical History: Reports: Arthroscopic Procedure, Other (See Below) Other Musculoskeletal Surgeries/Procedures:: Scharco" feet - reconstruction of bilat feet Social & Family History - Caffeine Use Caffeine Use: Reports: None ED ROS GENERAL - Review of Systems Review Of Systems: See Below Constitutional: Denies: Fever, Chills Respiratory: Denies: Shortness of Breath Cardiovascular: Reports: Chest Pain (Burning sensation) GI/Abdominal: Denies: Abdominal Pain, Nausea, Vomiting Skin: Denies: Diaphoresis Neurological: Reports: Other (Patient struggles with some type of chronic peripheral neuropathy) Psychiatric: Reports: No Symptoms ED EXAM, GENERAL - Physical Exam Exam: See Below Exam Limited By: No Limitations General Appearance: Alert, No Apparent Distress Head: Atraumatic Respiratory/Chest: No Respiratory Distress, Lungs Clear, Other (I cannot reproduce chest wall tenderness to palpation) Cardiovascular: Regular Rate, Rhythm GI/Abdominal: Soft, Non-Tender Extremities: No: Pedal Edema Neurological: Alert, Oriented Psychiatric: Normal Affect, Normal Mood Skin Exam: Warm, Dry Course - Vital Signs Last Recorded V/S: Last Vital Signs Temp 97.3 F 12/24/20 12:49 Pulse 70 12/24/20 12:49 Resp 16 12/24/20 12:49 BP 159/56 H 12/24/20 12:49 Pulse Ox 98 12/24/20 12:49 - Orders/Labs/Meds Labs: Laboratory Tests 12/24/20 Range/Units 12:48 Troponin I < 0.017 (0.000-0.056) ng/mL - Re-Assessments/Exams Free Text/Narrative Re-Assessment/Exam: 12/24/20 12:48 I reviewed the clinic note from the toys and games hand finisher nurse practitioner. Apparently she was sent over for troponin, if it was positive more urgent evaluation was needed, if negative an outpatient angiogram will be set up. A troponin was ordered and I will pass along the result to the nurse practitioner when it is available. 12/24/20 13:37 Troponin is negative and the patient remained stable while in the emergency room. She will be discharged to follow-up with cardiology to arrange her evaluation at another time. She can return anytime if worsening or her pain is more persistent. Departure - Departure Time of Disposition: 13:45 Disposition: Home, Self-Care 01 Clinical Impression: Angina at rest - Discharge Information Instructions: Angina, [id number] Referrals: Mata Escobar MD [Primary Care Provider] - Forms: ED Department Discharge Care Plan Goals: Recheck with your cardiology provider to discuss further evaluation for your developing chest pains. Return to the emergency room at any time if pains are persistent, involve shortness of breath or other concerning symptoms. Sepsis Event Note (ED) - Focused Exam Vital Signs: Vital Signs Temp Pulse Resp BP Pulse Ox 12/24/20 12:49 97.3 F 70 16 159/56 H 98 12/24/20 12:27 97.3 F 70 16 159/56 H 98
== END 2020-12-24 13:45 | disposition home or self-care (01) ==
LOC: JP.ED 12:06
DX: I20.9 Angina pectoris, unspecified (principal); I48.91 Unspecified atrial fibrillation; E78.00 Pure hypercholesterolemia, unspecified; I10 Essential (primary) hypertension; M06.9 Rheumatoid arthritis, unspecified; E11.9 Type 2 diabetes mellitus without complications; Z88.1 Allergy status to other antibiotic agents; Z88.8 Allergy status to other drugs, medicaments and biological substances; Z91.041 Radiographic dye allergy status; Z88.0 Allergy status to penicillin; Z91.018 Allergy to other foods; Z88.2 Allergy status to sulfonamides; Z79.82 Long term (current) use of aspirin; Z79.4 Long term (current) use of insulin; Z79.02 Long term (current) use of antithrombotics/antiplatelets; Z79.899 Other long term (current) drug therapy
CPT/HCPCS: 36415; 84484; 99284

== ENCOUNTER 2022-03-12 19:35 | Emergency (ER) | payer MEDICARE, OTHER ==
[2022-03-12] MEDS ORDERED: SODIUM CHLORIDE 0.9% IV ONE (20:06)
[2022-03-12] MEDS ORDERED: Sodium Chloride 0.9% 10 ML Syringe FLUSH PRN (20:06)
[2022-03-12] MEDS ORDERED: GENTAMICIN IV ONE (20:06)
[2022-03-12] MEDS ORDERED: Rifampin 150 MG Cap PO STA (20:15)
[2022-03-12 20:42] LABS: ESTIMATED GFR 45 mL/min (>60)
[2022-03-12 21:08] VITALS: BP 167/79; PULSE 75
== END 2022-03-12 21:07 | disposition home or self-care (01) ==
LOC: JP.ED 19:35
DX: S80.12XA Contusion of left lower leg, initial encounter (principal); E78.00 Pure hypercholesterolemia, unspecified; E11.22 Type 2 diabetes mellitus with diabetic chronic kidney disease; I12.9 Hypertensive chronic kidney disease with stage 1 through stage 4 chronic kidney disease, or unspecified chronic kidney disease; N18.30 Chronic kidney disease, stage 3 unspecified; I48.91 Unspecified atrial fibrillation; Z88.1 Allergy status to other antibiotic agents; Z88.0 Allergy status to penicillin; Z91.041 Radiographic dye allergy status; Z88.2 Allergy status to sulfonamides; Z79.82 Long term (current) use of aspirin; Z79.4 Long term (current) use of insulin; Z79.899 Other long term (current) drug therapy; W55.03XA Scratched by cat, initial encounter
CPT/HCPCS: 36415; 80053; 83605; 84145; 85025; 86140; 99283; A9270

== ENCOUNTER 2022-04-21 19:32 | Emergency (ER) | payer MEDICARE, OTHER ==
[2022-04-21] MEDS ORDERED: fentaNYL 100 MCG/2 ML SDV IM ONE (20:17)
[2022-04-21 21:32] VITALS: BP 154/71; PULSE 81
== END 2022-04-21 21:39 | disposition home or self-care (01) ==
LOC: JP.ED 19:32
DX: S80.11XA Contusion of right lower leg, initial encounter (principal); I48.91 Unspecified atrial fibrillation; E78.00 Pure hypercholesterolemia, unspecified; E11.22 Type 2 diabetes mellitus with diabetic chronic kidney disease; I12.9 Hypertensive chronic kidney disease with stage 1 through stage 4 chronic kidney disease, or unspecified chronic kidney disease; N18.9 Chronic kidney disease, unspecified; Z91.041 Radiographic dye allergy status; Z88.0 Allergy status to penicillin; Z91.018 Allergy to other foods; Z88.1 Allergy status to other antibiotic agents; Z88.2 Allergy status to sulfonamides; Z88.8 Allergy status to other drugs, medicaments and biological substances; Z79.82 Long term (current) use of aspirin; Z79.02 Long term (current) use of antithrombotics/antiplatelets; Z79.4 Long term (current) use of insulin; Z79.899 Other long term (current) drug therapy; W50.1XXA Accidental kick by another person, initial encounter
CPT/HCPCS: 76881; 96372; 99283; J3010

== ENCOUNTER 2022-04-24 08:18 | Day surgery (SDC) | payer MEDICARE, OTHER ==
[2022-04-24] MEDS ORDERED: Propofol 200 MG/20 ML SDV ONE (08:22)
[2022-04-24] MEDS ORDERED: Midazolam 1 MG/ML 2 ML SDV ONE (08:22)
[2022-04-24] MEDS ORDERED: fentaNYL 100 MCG/2 ML SDV ONE (08:22)
[2022-04-24] MEDS ORDERED: Sodium Chloride 0.9% 1,000 ML IV SCH (09:15)
[2022-04-24] MEDS ORDERED: Doxycycline 100 MG in Sodium Chloride 0.9% 100 ML IV ONE (10:00)
[2022-04-24] MEDS ORDERED: Lidocaine 1% with EPINEPHrine 1:100,000 50 ML MDV ONE (10:24)
[2022-04-24] MEDS ORDERED: Lidocaine 1% with EPINEPHrine 1:100,000 50 ML MDV INJECT ONE (10:27)
[2022-04-24] MEDS ORDERED: Ondansetron 4 MG/2 ML SDV ONE (10:35)
[2022-04-24] MEDS ORDERED: Dexamethasone 4 MG/ML SDV ONE (10:35)
[2022-04-24] MEDS ORDERED: fentaNYL 50 MCG/ML SDV IVPUSH ONE (10:52)
[2022-04-24] MEDS ORDERED: Morphine 2 MG/ML SYRINGE IVPUSH STA (11:49)
[2022-04-24 12:34] VITALS: BP 146/60; PULSE 75
== END 2022-04-24 13:18 | disposition home or self-care (01) ==
LOC: JP.SDS 08:18
PROVIDERS: ATTEND Surgery
DX: S80.11XA Contusion of right lower leg, initial encounter (principal); M79.81 Nontraumatic hematoma of soft tissue; I10 Essential (primary) hypertension; Z79.899 Other long term (current) drug therapy; I12.9 Hypertensive chronic kidney disease with stage 1 through stage 4 chronic kidney disease, or unspecified chronic kidney disease; N18.30 Chronic kidney disease, stage 3 unspecified
CPT/HCPCS: 10140; 76881; J1100; J2250; J2270; J2405; J2704; J3010; J3490; J7030

== ENCOUNTER 2022-05-03 21:34 | Emergency (ER) | payer MEDICARE, OTHER ==
[2022-05-03 21:47] VITALS: BP 172/63; PULSE 84
[2022-05-03] MEDS ORDERED: Bacitracin Oint 1 GM U/D Packet TOP ONE (22:20)
== END 2022-05-03 22:55 | disposition home or self-care (01) ==
LOC: JP.ED 21:34
DX: M96.843 Postprocedural seroma of a musculoskeletal structure following other procedure (principal); I48.91 Unspecified atrial fibrillation; E78.00 Pure hypercholesterolemia, unspecified; K21.9 Gastro-esophageal reflux disease without esophagitis; I12.9 Hypertensive chronic kidney disease with stage 1 through stage 4 chronic kidney disease, or unspecified chronic kidney disease; E11.22 Type 2 diabetes mellitus with diabetic chronic kidney disease; N18.30 Chronic kidney disease, stage 3 unspecified; M06.9 Rheumatoid arthritis, unspecified; Z88.6 Allergy status to analgesic agent; Z88.1 Allergy status to other antibiotic agents; Z88.5 Allergy status to narcotic agent; Z88.8 Allergy status to other drugs, medicaments and biological substances; Z88.0 Allergy status to penicillin; Z88.2 Allergy status to sulfonamides; Z91.041 Radiographic dye allergy status; Z79.82 Long term (current) use of aspirin; Z79.4 Long term (current) use of insulin; Z79.899 Other long term (current) drug therapy; Z79.02 Long term (current) use of antithrombotics/antiplatelets
CPT/HCPCS: 36415; 85025; 99283

== ENCOUNTER 2022-06-16 13:08 | Emergency (ER) | payer MEDICARE, OTHER ==
[2022-06-16 14:21] LABS: ESTIMATED GFR 30 mL/min (>60)
[2022-06-16 14:24] LABS: TROPONIN I HIGH SENSITIVITY 86.4 pg/mL (<=60.3)
[2022-06-16] MEDS ORDERED: Acetaminophen/HYDROcodone 325-5 MG Tab PO ONE (17:26)
[2022-06-16] MEDS ORDERED: DAPTOmycin 500 MG Vial IVPUSH ONE (17:27)
[2022-06-16 18:24] VITALS: BP 121/57; PULSE 99
== END 2022-06-16 18:40 | disposition home or self-care (01) ==
LOC: JP.ED 13:08
DX: E11.22 Type 2 diabetes mellitus with diabetic chronic kidney disease (principal); I12.9 Hypertensive chronic kidney disease with stage 1 through stage 4 chronic kidney disease, or unspecified chronic kidney disease; N18.4 Chronic kidney disease, stage 4 (severe); I25.10 Atherosclerotic heart disease of native coronary artery without angina pectoris; I73.9 Peripheral vascular disease, unspecified; M06.9 Rheumatoid arthritis, unspecified; E11.65 Type 2 diabetes mellitus with hyperglycemia; L53.9 Erythematous condition, unspecified; Z88.1 Allergy status to other antibiotic agents; K21.9 Gastro-esophageal reflux disease without esophagitis; Z91.041 Radiographic dye allergy status; Z88.0 Allergy status to penicillin; Z88.2 Allergy status to sulfonamides; Z88.8 Allergy status to other drugs, medicaments and biological substances; Z91.018 Allergy to other foods; Z79.82 Long term (current) use of aspirin; I48.91 Unspecified atrial fibrillation; I10 Essential (primary) hypertension
CPT/HCPCS: 36415; 71046; 80053; 82009; 82803; 84484; 85025; 86140; 93005; 96374; 99285; A9270; J0878; 93010; 99284

== ENCOUNTER 2024-06-17 14:09 | Emergency (ER) | payer MEDICARE, OTHER ==
[2024-06-17 14:45] LABS: INR 1.6; PROTHROMBIN TIME 15.7 sec (9.2-10.6)
[2024-06-17 16:42] VITALS: BP 159/70; PULSE 71
== END 2024-06-17 16:42 | disposition home or self-care (01) ==
LOC: JP.ED 14:09
DX: S80.02XA Contusion of left knee, initial encounter (principal); S90.02XA Contusion of left ankle, initial encounter; S70.02XA Contusion of left hip, initial encounter; S00.93XA Contusion of unspecified part of head, initial encounter; I48.91 Unspecified atrial fibrillation; E78.00 Pure hypercholesterolemia, unspecified; I10 Essential (primary) hypertension; E11.9 Type 2 diabetes mellitus without complications; Z86.16 Personal history of COVID-19; Z88.8 Allergy status to other drugs, medicaments and biological substances; Z88.1 Allergy status to other antibiotic agents; Z91.041 Radiographic dye allergy status; Z88.0 Allergy status to penicillin; Z91.018 Allergy to other foods; Z88.2 Allergy status to sulfonamides; Z79.82 Long term (current) use of aspirin; Z79.899 Other long term (current) drug therapy; Z79.4 Long term (current) use of insulin; W01.0XXA Fall on same level from slipping, tripping and stumbling without subsequent striking against object, initial encounter; Y93.89 Activity, other specified
CPT/HCPCS: 36415; 70450; 70450-26; 73502-26-LT; 73502-LT; 73562-26-LT; 73562-LT; 73630-26-LT; 73630-LT; 85610; 99284

== ENCOUNTER 2024-08-16 06:06 | Emergency (ER) | payer MEDICARE, OTHER ==
[2024-08-16 06:36] LABS: BASOPHILS PERCENT AUTO 0.1 % (0.1-1.3); EOSINOPHILS ABSOLUTE AUTO 0.04 K/uL (0.00-0.40); EOSINOPHILS PERCENT AUTO 0.4 % (0.0-5.4); HEMATOCRIT 37.2 % (34.3-46.0); HEMOGLOBIN 12.1 g/dL (11.2-15.5); IMMATURE GRAN ABSOLUTE AUTO 0.05 K/uL (0.00-0.23); IMMATURE GRAN PERCENT AUTO 0.5 % (0.0-0.7); LYMPHOCYTES PERCENT AUTO 2.1 % (11.4-47.7); MEAN CORPUSCULAR HEMOGLOBIN 33.7 pg (31.6-35.5); MEAN CORPUSCULAR HGB CONC 32.5 g/dL (31.6-35.5); MEAN CORPUSCULAR VOLUME 103.6 fL (81.4-99.0); MONOCYTES PERCENT AUTO 6.3 % (3.3-12.6); NEUTROPHILS ABSOLUTE AUTO 8.57 K/uL (1.0-7.6); NEUTROPHILS PERCENT AUTO 90.6 % (40.0-78.1); PLATELET COUNT,PLT 152 K/uL (130-375); RED BLOOD CELL COUNT 3.59 M/uL (3.77-5.24); WHITE BLOOD CELL COUNT,WBC 9.5 K/uL (3.2-11.0)
[2024-08-16] MEDS: Ondansetron 4 MG/2 ML SDV IVPUSH ONE (06:38)
[2024-08-16 06:50] LABS: BASOPHILS ABSOLUTE AUTO 0.01 K/uL (0.00-0.10)
[2024-08-16 07:03] LABS: A/G RATIO 1.1 (1.2-2.2); ALANINE AMINOTRANSFERASE,ALT 20 U/L (12-78); ALBUMIN 3.5 g/dL (3.4-5.0); ALKALINE PHOSPHATASE 71 U/L (46-116); ANION GAP 9.4 mmol/L (5.0-14.0); ASPARTATE AMNIOTRANSFERASE,AST 22 U/L (15-37); BILIRUBIN TOTAL 0.6 mg/dL (0.2-1.0); BLOOD UREA NITROGEN,BUN 20 mg/dL (7-18); C-REACTIVE PROTEIN 1.73 mg/dL (<0.50); CALCIUM 9.5 mg/dL (8.5-10.1); CARBON DIOXIDE,CO2 29 mmol/L (21-32); CHLORIDE,CL 102 mmol/L (100-108); CREATININE 1.2 mg/dL (0.6-1.0); EST CRCL DRUG DOSING (CG) 41.81 mL/min; ESTIMATED GFR 48 mL/min (>60); GLUCOSE RANDOM 284 mg/dL (74-106); POTASSIUM,K 3.8 mmol/L (3.6-5.2); PROTEIN TOTAL,TP 6.7 g/dL (6.4-8.2); SODIUM,NA 140 mmol/L (140-148)
[2024-08-16] MEDS: Sodium Chloride 0.9% 1,000 ML IV SCH ×2 (07:08→08:25)
[2024-08-16 08:10] VITALS: BP 127/48; PULSE 101
== END 2024-08-16 09:50 | disposition home or self-care (01) ==
LOC: JP.ED 06:06
DX: E86.0 Dehydration (principal); I12.9 Hypertensive chronic kidney disease with stage 1 through stage 4 chronic kidney disease, or unspecified chronic kidney disease; N18.9 Chronic kidney disease, unspecified; I48.91 Unspecified atrial fibrillation; E78.00 Pure hypercholesterolemia, unspecified; E11.9 Type 2 diabetes mellitus without complications; Z86.16 Personal history of COVID-19; Z88.1 Allergy status to other antibiotic agents; Z91.041 Radiographic dye allergy status; Z88.8 Allergy status to other drugs, medicaments and biological substances; Z88.2 Allergy status to sulfonamides; Z79.82 Long term (current) use of aspirin; Z79.899 Other long term (current) drug therapy; Z79.4 Long term (current) use of insulin
CPT/HCPCS: 36415; 80053; 83605; 83690; 84484; 85025; 86140; 96361; 96374; 99284; J2405; J7030